=== PATIENT | female | born 1930 | race Caucasian/White ===

== ENCOUNTER 2018-12-08 03:26 | Observation (INO) ==
[2018-12-08] MEDS ORDERED: methylPREDNISolone 125 MG/2 ML VIAL IVP ONE (05:51)
[2018-12-08] MEDS ORDERED: Ipratropium/Albuterol Neb 3 ML ONE (05:56)
[2018-12-08] MEDS: Ipratropium/Albuterol Neb 3 ML IH SCH ×7 (05:59→23:45)
--- NOTE | 2018-12-08 06:20 | Internal Med History&Physical ---
Date of Encounter: 12/08/18 Time of Encounter: 06: Internal Medicine - H&P: HPI Chief complaint: SOB Admitted From: Hospital to Hospital Transfer Plans for Post Hospital Care: Transfer Nursing Home Facility History of present illness: Betty Ro is an 87-year-old woman with chronic respiratory failure status post tracheostomy due to multiple intubations and tracheobronchomalacia, COPD and CAD who has suffered multiple cardiac arrests and was last admitted here from 11/28 - 12/04/18 at which time she was managed for cardiac arrest. 2 to be secondary to hypoxic respiratory failure in the setting of mucous plugging and pneumonia. She underwent bronchoscopy and was placed on antibiotics based on the culture data. It was recommended she receive a total of 14 days of antibiotics scheduled for completion on 12/12 and was sent to a jail. Last night she was sent from the jail to [facility] to emergency room with the complaint of feeling unwell. Over there she had a chest x-ray done which showed concerns of worsening consolidation and therefore was sent over here for further evaluation. On my assessment she tells me that she has been feeling more short of breath over the past 2 days and going in between feeling hot and feeling cold, occasionally having chills. Vitals: Reviewed General: Frail elderly woman who become significantly dyspneic just answering a few questions. Skin: Decreased skin turgor, dry and thin HEENT: Moist mucous membranes. No conjunctivae pallor. Neck: Trach site with [place] valve and on supplemental oxygen. Chest: Scoliotic. Diminished thoracic expansion with diffuse wheezing and rhonchi in the right lung field and diminished breath sounds in the left lower lung field. Heart: Normal S1 & S2; rhythmic. Abdomen: Non-distended, soft and non-tender to palpation. No peritoneal reaction. PEG site intact. Extremities: Significant left arm edema that is wrapped in AGUSTIN. No distal cyanosis. Neurological: Awake, alert and oriented to person, place. No focal deficits. Psych: Affect appropriate. Assessment/Plan 1. Acute hypoxic respiratory failure: Suspect secondary to a COPD exacerbation complicated by her underlying pneumonia. I have reviewed the x-ray from [facility] her right lung field is well aerated and appears better than the study done 3 weeks ago. However, as noted on physical exam with the diminished breath sounds, the left lung field has a notable infiltrate that seems consistent with an effusion and this is likely a contributory factor. She may benefit from a CT scan for better evaluate as there may be a component of atelectasis and/or consolidation. If effusion is confirmed, consideration can be given towards a thoracentesis. For now, will provide supplemental oxygen, give systemic steroids for her COPD component and place her on standing nebulizer therapy. 2. Pneumonia: Will continue cefepime and clindamycin as recommended by ID during last admission, scheduled for completion on 12/12. 3. Frailty: Will consult nutrition for enteral feeding recommendations. 4. CAD: Will continue ASA/statin. Past Med Surg Social Fam HX - Past Medical History Medical history: CHF, GERD, hyperlipidemia, hypertension Additional medical history: Resp failure w/multiple intubations and codes. multiple UTI/chronic indwelling suprapubic catheter (admitted w/). Pneumonia. ?Histoplasmosis. ?[place]. Chronic TRACH/vent Psychiatric history: anxiety - Past Surgical History Additional surgical history: Melanoma removal x4 w/4 lymph node removals. Chronic trach/vent patient - Social History Smoking Status: Never smoker Alcohol use: none Drug use: none - Family History Mother Adopted: No Living Status: Hx Family Cardiac Disorders: Yes Father Living Status: Internal Medicine - H&P: Meds Acetaminophen [Pain Relief] 650 mg GTUBE Q4H PRN 11/29/18 [History] Albuterol Neb [Proventil Neb] 2.5 mg ENDOTRACHE Q6H PRN 11/29/18 [History] Amlodipine Besylate 10 mg GTUBE DAILY 11/29/18 [History] Aspirin [Lo-Dose Aspirin EC] 81 mg GTUBE DAILY 11/29/18 [History] Atorvastatin Calcium [Lipitor] 20 mg GTUBE HS 11/29/18 [History] Carvedilol 12.5 mg GTUBE Q12H 11/29/18 [History] Furosemide [Lasix] 20 mg GTUBE DAILY 11/29/18 [History] Heparin Sodium,Porcine [Heparin Sodium] 5,000 units SQ Q8H 11/29/18 [History] Ipratropium/Albuterol Neb [Duoneb] 3 ml ENDOTRACHE Q6H 11/29/18 [History] Lansoprazole [Prevacid] 30 mg GTUBE DAILY 11/29/18 [History] Polyethylene Glycol 3350 [MiraLAX] 17 gm GTUBE Q48H 11/29/18 [History] cloNIDine HCl [CloNIDine HCl] 0.1 mg GTUBE BID 11/29/18 [History] Cefepime HCl/D5w [Cefepime-Dextrose 2 gm/50 ml] 2 gm IV Q12H 8 Days #16 piggyback 12/04/18 [Rx] Clindamycin 600 MG/50 ML [Cleocin Premix 600 MG/50 ML] 600 mg IVPB Q8H 8 Days #24 bag 12/04/18 [Rx] Ferrous Sulfate 325 mg PO DAILY@0800 tablet 12/04/18 [Rx] Allergy/AdvReac Type Severity Reaction Status Date / Time codeine Allergy See Verified 11/29/18 13:25 Comments lisinopril Allergy swelling Verified 11/29/18 13:25 Penicillins Allergy swelling Verified 11/29/18 13:25 vancomycin Allergy Itching Verified 11/29/18 13:25 All Systems PM: A 10-system review of systems was performed and is negative for pertinent findings except as documented above in the HPI. - Constitutional Vitals: Temp Pulse Resp BP Pulse Ox 98.1 F 88 18 188/96 95 12/08/18 05:37 12/08/18 05:37 12/08/18 06:00 12/08/18 05:37 12/08/18 06:00 Exam: . - Time Spent With Patient Total time spent is greater than 50% in coordination of care (as documented) at patient's floor/unit and/or counseling patient: Greater than 35 minutes
[2018-12-08] MEDS: Cefepime HCl 2,000 MG in Water for inj. (sterile) 20 ML 20 ML IVPB SCH ×2 (06:36→17:54)
[2018-12-08] MEDS: *HR* Heparin 5,000 UNIT/ML VIAL SQ SCH ×3 (06:39→21:54)
[2018-12-08] MEDS ORDERED: Furosemide 20 MG TABLET PO SCH (09:00)
[2018-12-08 09:15] LABS: INR 1.1; Prothrombin Time 12.8 Seconds (9.4-12.1)
[2018-12-08 09:24] LABS: Basophils % 0.3 %; Eosinophils # 0.3 K/mcL (0.0-0.6); Eosinophils % 2.3 %; Hemoglobin 9.3 g/dL (11.5-15.4); Immature Granulocytes % 1.3 % (0-4); Lymphocytes # 1.7 K/mcL (0.6-4.6); Lymphocytes % 13.5 %; Mean Corpuscular Hemoglobin 28.9 pg (28.0-33.3); Mean Corpuscular Volume 93.2 fL (83.0-100.0); Mean Platelet Volume 8.8 fL (9.4-12.4); Monocytes # 0.2 K/mcL (0.0-1.3); Monocytes % 1.6 %; Neutrophils # 10.4 K/mcL (1.6-8.9); Platelet Count 413 K/mcL (140-400); Red Blood Count 3.22 M/mcL (3.82-4.97); Red Cell Distribution Width 15.3 % (11.5-14.5); White Blood Count 12.9 K/mcL (4.3-11.1)
[2018-12-08 09:33] LABS: VBG HCO3 28 mEq/L (21-27); VBG PCO2 40 mmHg (41-51); VBG PH 7.45 pH Units (7.32-7.42); VBG PO2 171 mmHg (25-50)
[2018-12-08 09:41] LABS: BUN/Creatinine Ratio 55 (6-26); Blood Urea Nitrogen 27 mg/dL (8-23); Calcium 9.2 mg/dL (8.6-10.3); Carbon Dioxide 28 mEq/L (23-29); Chloride 97 mEq/L (98-107); Glucose 119 mg/dL (70-105); Magnesium 2.1 mg/dL (1.6-2.6); Osmolality,Calculated 284 (280-300); Potassium 4.8 mEq/L (3.5-5.1); Sodium 134 mEq/L (136-145); eGFR For African Americans > 60 (> 60); eGFR For Non-African Americans > 60 (> 60)
[2018-12-08] MEDS: Clindamycin 600 MG/50 ML 600 MG/50 ML IV.SOLN IVPB SCH ×3 (10:04→23:55)
[2018-12-08] MEDS: cloNIDine HCl 0.1 MG TABLET GTUBE SCH ×2 (10:05→21:55)
[2018-12-08] MEDS: Aspirin 81 MG TAB.CHEW GTUBE SCH (10:05)
[2018-12-08] MEDS: amLODIPine 5 MG TABLET GTUBE SCH (10:05)
--- NOTE | 2018-12-08 12:06 | Event Note ---
Date of Encounter: 12/08/18 Time of Encounter: 09:00 H&P reviewed. 87 year old female with chronic respiratory failure status post tracheostomy due to multiple intubations and tracheobronchomalacia, ?COPD, CAD, HTN, who was recently dmitted here from 11/28 - 12/04/18 for multifocal PNA and cardiac arrest from hypoxia, was admitted for ECF due to "feeling unwell". There was a question about worsening PNA based on CXR done at the OSH but upon the comparison from the study that we have at [facility], it appears like there is an improvement in aeration at least on R lung field. Also, her O2 requirement had significantly improved since discharge. Will check CT chest to for direct comparison to the prior CT and decide on whether she need further evaluation for persistent PNA. IF she is found to have significant pleural effusion, would consult pulmonology for therapeutic/dx thoracentesis. Continue the same abx, wean O2 as tolerated, and she will benefit from positive pressure ventilation overnight. Increase coreg to optimize BP control
[2018-12-08] MEDS: Ferrous Sulfate Oral Soln 300 MG/5 ML UDC GTUBE SCH (13:49)
--- NOTE | 2018-12-08 14:41 | IR Procedure Note ---
Date of procedure: 12/08/18 Consent Obtained: Verbal consent, Written consent Timeout: Correct patient and procedure verified, Correct site verified, Time out performed, Skin prep completed Local anesthetic: Lidocaine 1% Was there an case management assistant present: No Results/Findings: US guided left thoracentesis Estimated blood loss (cc): 1 Complications: None; Tolerated procedure well Indications: Left pleural effusion Procedure Performed: US guided thoracentesis Site/Technique: US guided left thoracentesis performed Results/Findings (any specimens removed): Moderate pleural effusion Post Procedure Treatment Plan: Continue inpatient care Specimen: serous pleural fluid
[2018-12-08 16:34] LABS: Adenovirus Not Detected (Not Detect); Bordetella Pertussis Not Detected (Not Detect); Chlamydophila pneumoniae Not Detected (Not Detect); Coronavirus 229E Not Detected (Not Detect); Coronavirus HKU1 Not Detected (Not Detect); Coronavirus NL63 Not Detected (Not Detect); Coronavirus OC43 Not Detected (Not Detect); Human Metapneumovirus Not Detected (Not Detect); Human Rhinovirus/Enterovirus Not Detected (Not Detect); Influenza A Subtype 2009 H1 Not Detected (Not Detect); Influenza A Untypeable Not Detected (Not Detect); Influenza B Not Detected (Not Detect); Mycoplasma pneumoniae Not Detected (Not Detect); Parainfluenza Virus 1 Not Detected (Not Detect); Parainfluenza Virus 2 Not Detected (Not Detect); Parainfluenza Virus 3 Not Detected (Not Detect); Parainfluenza Virus 4 Not Detected (Not Detect); Respiratory Syncytial Virus Not Detected (Not Detect)
[2018-12-08] MEDS ORDERED: D5% in 0.45% NACL w KCl 20 MEQ/1,000 ML MLS IVC ONE (18:36)
[2018-12-08] MEDS: ALPRAZolam 0.5 MG TABLET PO SCH (21:54)
[2018-12-09] MEDS: Ipratropium/Albuterol Neb 3 ML IH SCH ×6 (04:19→23:26)
[2018-12-09] MEDS: *HR* Heparin 5,000 UNIT/ML VIAL SQ SCH ×3 (05:28→22:19)
[2018-12-09] MEDS: Cefepime HCl 2,000 MG in Water for inj. (sterile) 20 ML 20 ML IVPB SCH ×2 (05:29→18:05)
[2018-12-09] MEDS: amLODIPine 5 MG TABLET GTUBE SCH (08:51)
[2018-12-09] MEDS: Ferrous Sulfate Oral Soln 300 MG/5 ML UDC GTUBE SCH (08:51)
[2018-12-09] MEDS: cloNIDine HCl 0.1 MG TABLET GTUBE SCH ×2 (08:52→22:20)
[2018-12-09] MEDS: Furosemide 40 MG TABLET PO SCH (08:52)
[2018-12-09] MEDS: Aspirin 81 MG TAB.CHEW GTUBE SCH (08:52)
[2018-12-09] MEDS: Clindamycin 600 MG/50 ML 600 MG/50 ML IV.SOLN IVPB SCH ×2 (08:59→16:05)
[2018-12-09] MEDS ORDERED: MethylPREDNISolone 40 MG/ML VIAL IVP SCH (09:00)
--- NOTE | 2018-12-09 09:50 | Pulmonology Consult Note ---
Date of Encounter: 12/09/18 Time of Encounter: 08:00 Assessment and Plan (1) COPD (chronic obstructive pulmonary disease) Current Visit: No Status: Chronic Continue scheduled bronchodilators. 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 (3) HCAP (healthcare-associated pneumonia) Current Visit: No Status: Acute Patient record and pneumonia last cultures grew Corynebacterium striatum, pseudomonas aeruginosa patient is on cefepime and clindamycin according to infectious disease. For total of 14 days this was prescribed in her recent last admission History of Present Illness Consult date: 12/09/18 Requesting physician: Ayaan Baig Chief complaint: Patient feeling weak History of present illness: 87-year-old female with past medical history significant for recurrent pneumon ia, COPD moderate tracheal bronchomalacia patient was recently treated for pneumonia and sputum grew out Corynebacterium striatum, Pseudomonas aeruginosa patient is on several time and clindamycin pulmonary was consult that for nighttime ventilator settings in the setting of tracheal bronchomalacia. Patient is back to almost baseline not much secretion in the tracheostomy tube. Patient denies any chest pain chest tightness denies any palpitations syncope denies any abdominal symptoms. Patient denies any headache or any other focal neurological deficits Past Med Surg Social Fam HX - Past Medical History Medical history: CHF, GERD, hyperlipidemia, hypertension Additional medical history: Resp failure w/multiple intubations and codes. multiple UTI/chronic indwelling suprapubic catheter (admitted w/). Pneumonia. ?Histoplasmosis. ?[place]. Chronic TRACH/vent Psychiatric history: anxiety - Past Surgical History Additional surgical history: Melanoma removal x4 w/4 lymph node removals. Chronic trach/vent patient - Social History Smoking Status: Never smoker Alcohol use: none Drug use: none - Family History Mother Adopted: No Living Status: Hx Family Cardiac Disorders: Yes Hx Family Neurologic Disorders: Yes (cva) Father History Unknown: Yes Living Status: Medications and Allergies Acetaminophen [Pain Relief] 650 mg GTUBE Q4H PRN 11/29/18 [History] Albuterol Neb [Proventil Neb] 2.5 mg ENDOTRACHE Q6H PRN 11/29/18 [History] Amlodipine Besylate 10 mg GTUBE DAILY 11/29/18 [History] Aspirin [Lo-Dose Aspirin EC] 81 mg GTUBE DAILY 11/29/18 [History] Atorvastatin Calcium [Lipitor] 20 mg GTUBE HS 11/29/18 [History] Heparin Sodium,Porcine [Heparin Sodium] 5,000 units SQ Q8H 11/29/18 [History] Ipratropium/Albuterol Neb [Duoneb] 3 ml ENDOTRACHE Q6H 11/29/18 [History] Lansoprazole [Prevacid] 30 mg GTUBE DAILY 11/29/18 [History] Polyethylene Glycol 3350 [MiraLAX] 17 gm GTUBE Q48H 11/29/18 [History] cloNIDine HCl [CloNIDine HCl] 0.1 mg GTUBE BID 11/29/18 [History] Cefepime HCl/D5w [Cefepime-Dextrose 2 gm/50 ml] 2 gm IV Q12H 8 Days #16 piggyback 12/04/18 [Rx] Clindamycin 600 MG/50 ML [Cleocin Premix 600 MG/50 ML] 600 mg IVPB Q8H 8 Days #24 bag 12/04/18 [Rx] Ferrous Sulfate 325 mg PO DAILY@0800 tablet 12/04/18 [Rx] ALPRAZolam [Xanax 0.25 MG Tablet] 0.25 mg GTUBE Q8H 3 Days #9 tablet 12/09/18 [Rx] Carvedilol [Coreg] 25 mg GTUBE BID 30 Days #60 tablet 12/09/18 [Rx] Desitin (Zinc Oxide) [Desitin] 1 appl TP AD PRN 12/09/18 [History] Furosemide [Lasix] 40 mg GTUBE DAILY #60 tablet 12/09/18 [Rx] Allergy/AdvReac Type Severity Reaction Status Date / Time codeine Allergy See Verified 12/09/18 09:38 Comments lisinopril Allergy swelling Verified 12/09/18 09:38 Penicillins Allergy swelling Verified 12/09/18 09:38 vancomycin Allergy Itching Verified 12/09/18 09:38 All Systems: The remainder of the systems were reviewed and are negative Physical Examination Vital Signs: Vital Signs, Last 4 Hours Temp Pulse Resp BP Pulse Ox 12/09/18 07:44 98.2 F 82 18 143/58 100 12/09/18 07:22 18 95 General appearance: no acute distress Eyes: nonicteric ENT: oropharynx moist Auscultation: bilateral: diminished breath sounds (Basilar), rales (Scattered rales) Cardiovascular: regular rate and rhythm Gastrointestinal: normoactive bowel sounds Extremities: no edema normal mental status, non-focal exam Ventilator Settings Ventilator Settings: Ventilator Settings, Last 8 Hours Actual Respiratory Rate 17 Positive End Expiratory 5 Pressure Peak Inspiratory Airway 13 Pressure Results - Laboratory Findings CBC and BMP: 12/08/18 09:11 12/08/18 09:11 PT/INR, D-dimer PT 12.8 Seconds (9.4-12.1) H 12/08/18 08:29 Abnormal lab findings: Abnormal lab results WBC 12.9 K/mcL (4.3-11.1) H 12/08/18 09:11 RBC 3.22 M/mcL (3.82-4.97) L 12/08/18 09:11 Hgb 9.3 g/dL (11.5-15.4) L 12/08/18 09:11 Hct 30.0 % (35.3-44.9) L 12/08/18 09:11 MCHC 31.0 g/dL (31.6-35.5) L 12/08/18 09:11 RDW 15.3 % (11.5-14.5) H 12/08/18 09:11 Plt Count 413 K/mcL (140-400) H 12/08/18 09:11 MPV 8.8 fL (9.4-12.4) L 12/08/18 09:11 10.4 K/mcL (1.6-8.9) H 12/08/18 09:11 PT 12.8 Seconds (9.4-12.1) H 12/08/18 08:29 VBG pH 7.45 pH Units (7.32-7.42) H 12/08/18 09:25 VBG pCO2 40 mmHg (41-51) L 12/08/18 09:25 VBG pO2 171 mmHg (25-50) H 12/08/18 09:25 VBG HCO3 28 mEq/L (21-27) H 12/08/18 09:25 Sodium 134 mEq/L (136-145) L 12/08/18 09:11 Chloride 97 mEq/L (98-107) L 12/08/18 09:11 BUN 27 mg/dL (8-23) H 12/08/18 09:11 0.49 mg/dL (0.60-1.20) L 12/08/18 09:11 55 (6-26) H 12/08/18 09:11 Glucose 119 mg/dL (70-105) H 12/08/18 09:11 POC Glucose 176 mg/dL (70-99) H 12/09/18 05:30 Lactic Acid 0.4 mmol/L (0.5-2.2) L 12/08/18 09:11 - Microbiology Findings Microbiology Findings: Microbiology, Last 48 Hours 12/08/18 08:36 Blood Culture - Preliminary Peripheral Venipuncture Culture is incubating and being continuously monitored for growth. Final report to follow. 12/08/18 08:29 Blood Culture - Preliminary Peripheral Venipuncture Culture is incubating and being continuously monitored for growth. Final report to follow. - Clinical Findings Intake & Output: Intake & Output 12/08/18 12/09/18 12/09/18 23:59 07:59 15:59 Intake Total 130 / 360 110 / 110 0 / 110 Output Total 800 / 1500 450 / 450 Balance -670 / -1140 -340 / -340 0 / -340 Weight 66 kg Consult Discharge Plan - Plan Instructions: Chronic Obstructive Pulmonary Disease (DC), Pneumonia (DC) Referrals: NONE,PCP [Primary Care Provider] - Jody Sandoval MD [Partnered Physician] - Prescriptions: Carvedilol [Coreg] 25 mg GTUBE BID 30 Days #60 tablet Furosemide [Lasix] 40 mg GTUBE DAILY #60 tablet ALPRAZolam [Xanax 0.25 MG Tablet] 0.25 mg GTUBE Q8H 3 Days #9 tablet
--- NOTE | 2018-12-09 10:32 | Discharge Summary ---
- NOTES TO OUTPATIENT PROVIDER Notes to Outpatient Provider: Follow up with Pulmonology as outpatient. Complete the rest of abx course. Nocturnal ventilator Orders not resulted at time of discharge: Pending orders 12/08/18 08:36 Culture,Blood [BC] Routine Date of Encounter: 12/09/18 Time of Encounter: 08:15 - Discharge Diagnosis (1) Chronic respiratory failure Priority: Primary Status: Acute Qualifiers: Respiratory failure complication: unspecified whether with hypoxia or hypercapnia Qualified Code(s): J96.10 - Chronic respiratory failure, unspecified whether with hypoxia or hypercapnia (2) HCAP (healthcare-associated pneumonia) Priority: Secondary Status: Acute (3) CAD (coronary artery disease) Priority: Secondary Status: Chronic Qualifiers: Coronary Disease-Associated Artery/Lesion type: [place] artery [place] vs. transplanted heart: [place] heart Associated angina: without angina Qualified Code(s): I25.10 - Atherosclerotic heart disease of [place] coronary artery without angina pectoris (4) COPD (chronic obstructive pulmonary disease) Priority: Secondary Status: Chronic Qualifiers: COPD type: unspecified COPD Qualified Code(s): J44.9 - Chronic obstructive pulmonary disease, unspecified (5) Tracheostomy dependence Priority: Secondary Status: Chronic (6) Pleural effusion Priority: Secondary Status: Acute Hospital course: Ms. Ro is a 87 year old female with chronic respiratory failure status post tracheostomy due to multiple intubations and tracheobronchomalacia, ?COPD, CAD, HTN, who was recently dmitted here from 11/28 - 12/04/18 for multifocal PNA and cardiac arrest from hypoxia, was admitted for ECF due to "feeling unwell". There was a question about worsening PNA based on CXR done at the OSH but upon the comparison from the study that we have at [facility], it appears like there is an improvement in aeration at least on R lung field, which was confirmed on repeat CT that showed improvement in multifocal pneumonia compared to 11/28. Also, her O2 requirement had significantly improved since discharge. Given the moderate amount of pleural effusion on the left, she underwent IR guided thoracentesis draining 350cc of serous fluid and her lasix will be uptitrated to 40mg QD. Complete the course of abx that was given at the time of last discharge, repeat BMP in 5 days, and follow up with Pulmonology as outpatient. Prior to tracheostomy, she was BiPaP dependent at night hence she will be discharged on nocturnal vent with the setting prescribed by Pulmonology. Discharge discussed with: patient, family, nurse, solutions consultant - Time Spent with Patient Total time spent providing and/or coordinating discharge services: 36 mins - Discharge Medications Prescriptions: New Carvedilol [Coreg] 25 mg GTUBE BID 30 Days #60 tablet Continued Albuterol Neb [Proventil Neb] 2.5 mg ENDOTRACHE Q6H PRN PRN Reason: Shortness Of Breath Amlodipine Besylate 10 mg GTUBE DAILY Aspirin [Lo-Dose Aspirin EC] 81 mg GTUBE DAILY Atorvastatin Calcium [Lipitor] 20 mg GTUBE HS Heparin Sodium,Porcine [Heparin Sodium] 5,000 units SQ Q8H Ipratropium/Albuterol Neb [Duoneb] 3 ml ENDOTRACHE Q6H Lansoprazole [Prevacid] 30 mg GTUBE DAILY Polyethylene Glycol 3350 [MiraLAX] 17 gm GTUBE Q48H cloNIDine HCl [CloNIDine HCl] 0.1 mg GTUBE BID Acetaminophen [Pain Relief] 650 mg GTUBE Q4H PRN PRN Reason: PAIN/FEVER Cefepime HCl/D5w [Cefepime-Dextrose 2 gm/50 ml] 2 gm IV Q12H 8 Days #16 piggyback Clindamycin 600 MG/50 ML [Cleocin Premix 600 MG/50 ML] 600 mg IVPB Q8H 8 Days #24 bag Ferrous Sulfate 325 mg PO DAILY@0800 tablet Desitin (Zinc Oxide) [Desitin] 1 appl TP AD PRN PRN Reason: Rash Changed Furosemide [Lasix] 40 mg GTUBE DAILY #60 tablet ALPRAZolam [Xanax 0.25 MG Tablet] 0.25 mg GTUBE Q8H 3 Days #9 tablet Discontinued Carvedilol 12.5 mg GTUBE Q12H Home Medications: Acetaminophen [Pain Relief] 650 mg GTUBE Q4H PRN 11/29/18 [History] Albuterol Neb [Proventil Neb] 2.5 mg ENDOTRACHE Q6H PRN 11/29/18 [History] Amlodipine Besylate 10 mg GTUBE DAILY 11/29/18 [History] Aspirin [Lo-Dose Aspirin EC] 81 mg GTUBE DAILY 11/29/18 [History] Atorvastatin Calcium [Lipitor] 20 mg GTUBE HS 11/29/18 [History] Heparin Sodium,Porcine [Heparin Sodium] 5,000 units SQ Q8H 11/29/18 [History] Ipratropium/Albuterol Neb [Duoneb] 3 ml ENDOTRACHE Q6H 11/29/18 [History] Lansoprazole [Prevacid] 30 mg GTUBE DAILY 11/29/18 [History] Polyethylene Glycol 3350 [MiraLAX] 17 gm GTUBE Q48H 11/29/18 [History] cloNIDine HCl [CloNIDine HCl] 0.1 mg GTUBE BID 11/29/18 [History] Cefepime HCl/D5w [Cefepime-Dextrose 2 gm/50 ml] 2 gm IV Q12H 8 Days #16 piggyback 12/04/18 [Rx] Clindamycin 600 MG/50 ML [Cleocin Premix 600 MG/50 ML] 600 mg IVPB Q8H 8 Days #24 bag 12/04/18 [Rx] Ferrous Sulfate 325 mg PO DAILY@0800 tablet 12/04/18 [Rx] ALPRAZolam [Xanax 0.25 MG Tablet] 0.25 mg GTUBE Q8H 3 Days #9 tablet 12/09/18 [Rx] Carvedilol [Coreg] 25 mg GTUBE BID 30 Days #60 tablet 12/09/18 [Rx] Desitin (Zinc Oxide) [Desitin] 1 appl TP AD PRN 12/09/18 [History] Furosemide [Lasix] 40 mg GTUBE DAILY #60 tablet 12/09/18 [Rx] Allergies/Adverse Reactions: Allergy/AdvReac Type Severity Reaction Status Date / Time codeine Allergy See Verified 12/09/18 09:38 Comments lisinopril Allergy swelling Verified 12/09/18 09:38 Penicillins Allergy swelling Verified 12/09/18 09:38 vancomycin Allergy Itching Verified 12/09/18 09:38 Date of admission: 12/08/18 05:12 Primary care physician: PCP NONE Consults: 12/08/18 05:49 Consult to Nutrition [CONS] Routine Comment: Consulting Provider: NUTRITION Reason for Dietary Consult: Tube Feed Start & Manage 12/08/18 17:39 Consult to Pulmonology [CONS] Routine Consulting Provider: [facility] [place] Reason for Consult: chronic trach, hx of tracheobronchomalacia. for nocturnal positive pressure vent Call Completed: Yes - Constitutional Vitals: Temp Pulse Resp BP Pulse Ox 98.2 F 82 18 143/58 100 12/09/18 07:44 12/09/18 07:44 12/09/18 07:44 12/09/18 07:44 12/09/18 07:44 Exam: General: alert and oriented x3, not in distress Chest: Diminished thoracic expansion due to scoliosis. Scattered rales bilaterally with diminished breath sound at the left lung base Heart: Normal S1 & S2 Abdomen: Non-distended, soft and non-tender to palpation. No peritoneal reaction. PEG site intact. Neurological: Awake, alert and oriented to person, place. No focal deficits. - Patient Status Disposition: Transfer SNF Overall status at discharge: patient is progressing back to baseline - Discharge Instructions Instructions: Pneumonia (DC), Chronic Obstructive Pulmonary Disease (DC) Follow Up With: NONE,PCP [Primary Care Provider] - Jody Sandoval MD [Partnered Physician] - - Diet and Activity Activity: as per physical therapy Diet: other (trial PO feeds with the assistance of speech and respiratory therapist. Otherwise, continue PEG tube feeding)
[2018-12-09] MEDS ORDERED: Desitin (Zinc Oxide) 56 GM TUBE TP PRN (13:43)
--- NOTE | 2018-12-09 13:43 | Physician Discharge Referral ---
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 (6) Pleural effusion Priority: Secondary Status: Acute - Transfer Medications Prescriptions: Carvedilol [Coreg] 25 mg GTUBE BID 30 Days #60 tablet Furosemide [Lasix] 40 mg GTUBE DAILY #60 tablet ALPRAZolam [Xanax 0.25 MG Tablet] 0.25 mg GTUBE Q8H 3 Days #9 tablet Home Medications: Acetaminophen [Pain Relief] 650 mg GTUBE Q4H PRN 11/29/18 [History] Albuterol Neb [Proventil Neb] 2.5 mg ENDOTRACHE Q6H PRN 11/29/18 [History] Amlodipine Besylate 10 mg GTUBE DAILY 11/29/18 [History] Aspirin [Lo-Dose Aspirin EC] 81 mg GTUBE DAILY 11/29/18 [History] Atorvastatin Calcium [Lipitor] 20 mg GTUBE HS 11/29/18 [History] Heparin Sodium,Porcine [Heparin Sodium] 5,000 units SQ Q8H 11/29/18 [History] Ipratropium/Albuterol Neb [Duoneb] 3 ml ENDOTRACHE Q6H 11/29/18 [History] Lansoprazole [Prevacid] 30 mg GTUBE DAILY 11/29/18 [History] Polyethylene Glycol 3350 [MiraLAX] 17 gm GTUBE Q48H 11/29/18 [History] cloNIDine HCl [CloNIDine HCl] 0.1 mg GTUBE BID 11/29/18 [History] Cefepime HCl/D5w [Cefepime-Dextrose 2 gm/50 ml] 2 gm IV Q12H 8 Days #16 piggyback 12/04/18 [Rx] Clindamycin 600 MG/50 ML [Cleocin Premix 600 MG/50 ML] 600 mg IVPB Q8H 8 Days #24 bag 12/04/18 [Rx] Ferrous Sulfate 325 mg PO DAILY@0800 tablet 12/04/18 [Rx] ALPRAZolam [Xanax 0.25 MG Tablet] 0.25 mg GTUBE Q8H 3 Days #9 tablet 12/09/18 [Rx] Carvedilol [Coreg] 25 mg GTUBE BID 30 Days #60 tablet 12/09/18 [Rx] Desitin (Zinc Oxide) [Desitin] 1 appl TP AD PRN 12/09/18 [History] Furosemide [Lasix] 40 mg GTUBE DAILY #60 tablet 12/09/18 [Rx] Allergies/Adverse Reactions: Allergy/AdvReac Type Severity Reaction Status Date / Time codeine Allergy See Verified 12/09/18 09:38 Comments lisinopril Allergy swelling Verified 12/09/18 09:38 Penicillins Allergy swelling Verified 12/09/18 09:38 vancomycin Allergy Itching Verified 12/09/18 09:38 - Respiratory Orders Oxygen / L per min (2-3L through trach collar during daytime. On ventilator at night with pressure support mode. Pressure support 8, PEEP 8, FiO2 30%.) Smoking Cessation: Smoking cessation has been advised. For more information, call the [place] Tobacco Quit Line at 9-895-HTDQ-NOW. - Rehabiliation Orders Rehab Orders: Evaluation for Physical Therapy, Evaluation for Occupational Therapy, Evaluation for Speech Therapy CERTIFICATION: I certify that the transfer of the above named patient to an Extended Care Facility is necessary for the continuing treatment of the diagnosis listed. The above information is true and accurate reflection of patient's current condition. Confidential - Redisclosure prohibited without a patient's written consent.
[2018-12-09] MEDS: ALPRAZolam 0.5 MG TABLET PO SCH (22:20)
[2018-12-10] MEDS: Clindamycin 600 MG/50 ML 600 MG/50 ML IV.SOLN IVPB SCH ×2 (00:37→08:01)
[2018-12-10] MEDS: Ipratropium/Albuterol Neb 3 ML IH SCH ×3 (03:35→11:00)
[2018-12-10] MEDS: Cefepime HCl 2,000 MG in Water for inj. (sterile) 20 ML 20 ML IVPB SCH (05:45)
[2018-12-10] MEDS: *HR* Heparin 5,000 UNIT/ML VIAL SQ SCH ×2 (05:45→14:03)
[2018-12-10] MEDS ORDERED: ALPRAZolam 0.5 MG TABLET PO ONE (07:50)
[2018-12-10] MEDS: Aspirin 81 MG TAB.CHEW GTUBE SCH (08:01)
[2018-12-10] MEDS: cloNIDine HCl 0.1 MG TABLET GTUBE SCH (08:01)
[2018-12-10] MEDS: Ferrous Sulfate Oral Soln 300 MG/5 ML UDC GTUBE SCH (08:01)
[2018-12-10] MEDS: amLODIPine 5 MG TABLET GTUBE SCH (08:01)
[2018-12-10] MEDS: Furosemide 40 MG TABLET PO SCH (08:02)
[2018-12-10 11:28] VITALS: BP 125/41
--- NOTE | 2018-12-10 18:57 | Internal Med Progress Note ---
Hospitalist Progress Note - Encounter Date of Encounter: 12/10/18 Time of Encounter: 11:30 - Subjective Interval History: No acute events overnight. Pt stayed in the hospital as the vent unit at her ECF was not made available for her. Denies any worsening SOB, feels significantly better after duoneb and suction. No fever overnight - Exam Vitals: Temp Pulse Resp BP Pulse Ox 98.1 F 66 18 125/41 97 12/10/18 11:26 12/10/18 11:26 12/10/18 11:12/10/18 11:12/10/18 11:26 Exam: General: alert and oriented x3, not in distress Chest: Diminished thoracic expansion due to scoliosis. Scattered rales bilaterally with diminished breath sound at the left lung base Heart: Normal S1 & S2 Abdomen: Non-distended, soft and non-tender to palpation. No peritoneal react ion. PEG site intact. Neurological: Awake, alert and oriented to person, place. No focal deficits. - Assessment and Plan (1) Pleural effusion Status: Acute Assessment and Plan: s/p thoracentesis increased lasix to 40mg QD (2) Chronic respiratory failure Status: Acute Assessment and Plan: O2 status improving given HCAP in the setting of significant tracheobronchomalacia that led her to get tracheostomy in the first place, would put her on pressure support mode ventilator at night. Appreciate pulm input for vent setting. (3) HCAP (healthcare-associated pneumonia) Status: Acute Assessment and Plan: complete cefepime and clindamycin as prescribed previously (4) CAD (coronary artery disease) Status: Chronic (5) COPD (chronic obstructive pulmonary disease) Status: Chronic (6) Tracheostomy dependence Status: Chronic - Summary of Assessment and Plan Summary of Assessment and Plan: Ms. Ro is a 87 year old female with chronic respiratory failure status post tracheostomy due to multiple intubations and tracheobronchomalacia, ?COPD, CAD, HTN, who was recently dmitted here from 11/28 - 12/04/18 for multifocal PNA and cardiac arrest from hypoxia, was admitted for ECF due to "feeling unwell". There was a question about worsening PNA based on CXR done at the OSH but upon the comparison from the study that we have at [facility], it appears like there is an improvement in aeration at least on R lung field, which was confirmed on repeat CT that showed improvement in multifocal pneumonia compared to 11/28. Also, her O2 requirement had significantly improved since discharge. Given the moderate amount of pleural effusion on the left, she underwent IR guided thoracentesis draining 350cc of serous fluid and her lasix will be uptitrated to 40mg QD. Complete the course of abx that was given at the time of last discharge, repeat BMP in 5 days, and follow up with Pulmonology as outpatient. Prior to tracheostomy, she was BiPaP dependent at night hence she will be discharged on nocturnal vent with the setting prescribed by Pulmonology. - Time Spent with Patient Total time spent is greater than 50% in coordination of care (as documented) at patient's floor/unit and/or counseling patient: less than 15 minutes Plan of Care Discussed with: nurse Internal Medicine: Result - Labs CBC & Chem 7: 12/08/18 09:11 12/08/18 09:11 - ABG Interpretation ABG results: PT/INR, D-dimer PT 12.8 Seconds (9.4-12.1) H 12/08/18 08:29 Consult Discharge Plan - Plan Instructions: Chronic Obstructive Pulmonary Disease (DC), Pneumonia (DC) Referrals: NONE,PCP [Primary Care Provider] - Jody Sandoval MD [Partnered Physician] - 02/10/19 (Office said they would call [facility] with time) Prescriptions: Carvedilol [Coreg] 25 mg GTUBE BID 30 Days #60 tablet Furosemide [Lasix] 40 mg GTUBE DAILY #60 tablet ALPRAZolam [Xanax 0.25 MG Tablet] 0.25 mg GTUBE Q8H 3 Days #9 tablet ____ (2) Chronic respiratory failure Qualifiers: Respiratory failure complication: unspecified whether with hypoxia or hypercapnia Qualified Code(s): J96.10 - Chronic respiratory failure, unspecified whether with hypoxia or hypercapnia (4) CAD (coronary artery disease) Qualifiers: Coronary Disease-Associated Artery/Lesion type: [place] artery [place] vs. transplanted heart: [place] heart Associated angina: without angina Qualified Code(s): I25.10 - Atherosclerotic heart disease of [place] coronary artery without angina pectoris (5) COPD (chronic obstructive pulmonary disease) Qualifiers: COPD type: unspecified COPD Qualified Code(s): J44.9 - Chronic obstructive pulmonary disease, unspecified
== END 2018-12-10 15:42 ==
LOC: 2NENU → SUATTDRO 05:12 → 2NNU 16:15
PROVIDERS: ADMIT Family Medicine; ATTEND Internal Medicine